=== PATIENT | female | born 1990 | race Caucasian/White ===

== ENCOUNTER → 2016-04-14 | Outpatient (REF) | payer BC | LOC: M SFHCWAGY 11:21 | PROVIDERS: ATTEND Nurse Practitioner Family | DX: Z12.4 Encounter for screening for malignant neoplasm of cervix (principal) ==

== ENCOUNTER → 2017-05-28 | Outpatient (REF) | payer BC | LOC: M SFHCWAGY 10:57 | DX: Z12.4 Encounter for screening for malignant neoplasm of cervix (principal) | CPT/HCPCS: G0123 ==

== ENCOUNTER → 2018-09-03 | Outpatient (REF) | payer BC | LOC: M SFHCLERA 13:39 | PROVIDERS: ATTEND Nurse Practitioner Family | DX: N92.6 Irregular menstruation, unspecified (principal) ==

== ENCOUNTER → 2018-10-01 | Outpatient (CLI) | payer BC ==
[2018-10-01 18:01] LABS: BASO % 0.5 % (0.0-1.0); HEMATOCRIT 39.4 % (36.0-47.0); HEMOGLOBIN 14.1 g/dl (12.0-15.5); LYMPH # 1.8 10^3/uL (1.5-6.5); LYMPH % 20.3 % (24.0-44.0); MEAN CORPUSCULAR HEMOGLOBIN 31.4 pg (27.0-33.0); MEAN CORPUSCULAR HGB CONC 35.8 g/dl (32.0-36.5); MEAN CORPUSCULAR VOLUME 87.8 fl (80.0-96.0); MONO # 0.5 10^3/uL (0.0-0.8); NEUTROPHILS # 6.4 10^3/uL (1.8-7.7); NEUTROPHILS % 72.4 % (36.0-66.0); PLATELET COUNT, AUTOMATED 226 10^3/uL (150-450); RED BLOOD COUNT 4.49 10^6/uL (4.00-5.40); WHITE BLOOD COUNT 8.9 10^3/uL (4.0-10.0)
[2018-10-01 20:02] LABS: CHLAMYDIA DNA AMPLIFICATION NEGATIVE (NEGATIVE); GC DNA AMPLIFICATION NEGATIVE (NEGATIVE)
[2018-10-02 23:00] LABS: HIV 1&2 SCREEN CENTAUR NEGATIVE (NEGATIVE); RUBELLA IgG QUALITATIVE IMMUNE (IMMUNE)
[2018-10-04 12:15] LABS: HEPATITIS C VIRUS ABY INDEX 0.1 INDEX (<0.8)
== END ==
LOC: M SMT 15:16
PROVIDERS: ATTEND Advanced Practice Midwife
DX: Z34.81 Encounter for supervision of other normal pregnancy, first trimester (principal); Z36.89 Encounter for other specified antenatal screening

== ENCOUNTER → 2018-12-03 | Outpatient (CLI) | payer BC ==
--- NOTE | 2018-12-03 17:04 | REP ---
OB ULTRASOUND: Real-time sonographic evaluation of the gravid uterus performed. There is a single living intrauterine gestation, estimated gestational age 21 weeks 5 days, EDC 04/10/2019. BPD 51 mm = 21 weeks 4 days HC 186 mm = 21 weeks 0 days AC 175 mm = 22 weeks 3 days FL 36 mm = 21 weeks 3 days HC/AC ratio 1.06, within normal range of 1.05 to 1.24. Estimated weight 458 grams, 53rd percentile. Cervix is closed and measures 3.8 cm in length. heart rate 144 beats per minute. SEEN/GROSSLY UNREMARKABLE Lateral ventricles yes Posterior fossa yes Upper lip yes Four-chamber heart yes LVOT yes RVOT yes Stomach yes Cord insertion yes Three vessel cord yes Kidneys yes Bladder yes Spine no position: Breech. Placenta: Posterior and grade 1 with no previa or abruption. Amniotic fluid: Within normal limits. Electronically Signed by Delfino Smith MD 12/06/2018 05:00 P
== END ==
LOC: M RAD 12:08
PROVIDERS: ATTEND Advanced Practice Midwife
DX: Z34.82 Encounter for supervision of other normal pregnancy, second trimester (principal); Z36.89 Encounter for other specified antenatal screening; Z3A.21 21 weeks gestation of pregnancy

== ENCOUNTER → 2019-01-11 | Outpatient (CLI) | payer BC ==
--- NOTE | 2019-01-12 02:40 | REP ---
Clinical: Anatomical evaluation. Comparison: 12/03/2018 . Findings: Examination demonstrates a single live intrauterine in cephalic presentation. motion is identified by technologist. Placenta is noted posterior and grade zero without evidence for placenta previa or abruption. Amniotic fluid volume is normal. Cervix measures 3.7 cm in length and appears closed. No evidence for nuchal cord. Gestational age by LMP 26 weeks 0 days with VLADIMIR 04/19/2019 . Gestational age by current measurements 28 weeks 0 days with VLADIMIR 04/05/2019 . FHR equals 140 beats per minute. Estimated weight 1247 grams ( 77 percentile based on age by first ultrasound at 27 weeks 2 days ). Anatomical assessment demonstrates normal structures including cranium, choroid plexus, cavum, cerebellum/posterior fossa, facial features, lungs, diaphragm, stomach, cord insertion/three-vessel cord, kidneys/bladder, spine, and extremities. Impression: Single live intrauterine in cephalic presentation demonstrating appropriate interval growth. In conjunction with prior examination anatomical assessment is complete and normal. No gross abnormalities are identified. Electronically Signed by Kana Adames MD 01/12/2019 02:32 A
== END ==
LOC: M RAD 10:29
PROVIDERS: ATTEND Obstetrics & Gynecology
DX: Z34.02 Encounter for supervision of normal first pregnancy, second trimester (principal); Z3A.27 27 weeks gestation of pregnancy

== ENCOUNTER → 2019-01-19 | Outpatient (CLI) | payer BC ==
[2019-01-19 17:27] LABS: HEMATOCRIT 39.7 % (36.0-47.0); HEMOGLOBIN 13.5 g/dl (12.0-15.5); MEAN CORPUSCULAR HEMOGLOBIN 31.2 pg (27.0-33.0); MEAN CORPUSCULAR VOLUME 91.7 fl (80.0-96.0); PLATELET COUNT, AUTOMATED 171 10^3/uL (150-450); RED BLOOD COUNT 4.33 10^6/uL (4.00-5.40); WHITE BLOOD COUNT 10.1 10^3/uL (4.0-10.0)
== END ==
LOC: M SMT 14:21
PROVIDERS: ATTEND Obstetrics & Gynecology
DX: Z34.02 Encounter for supervision of normal first pregnancy, second trimester (principal); Z3A.00 Weeks of gestation of pregnancy not specified

== ENCOUNTER → 2019-03-24 | Outpatient (CLI) | payer BC | LOC: M PLALAB 12:09 | PROVIDERS: ATTEND Advanced Practice Midwife | DX: Z34.03 Encounter for supervision of normal first pregnancy, third trimester (principal) ==

== ENCOUNTER 2019-03-30 11:59 | Inpatient (IN) | payer BC ==
[2019-03-30] VITALS (8 sets, daily range): BP systolic 132–177; BP diastolic 68–96
[~2019-03-30] VITALS: Ht 170.2 cm; Wt 111.7 kg
[2019-03-30] MEDS ORDERED: PRENTAB9 PO (12:31)
[2019-03-30] MEDS ORDERED: LR 1,000 ML IV SCH ×2 (12:35→18:15)
[2019-03-30] MEDS ORDERED: LACTATED RINGER'S 1000 ML IV STA (12:35)
[2019-03-30] MEDS ORDERED: ceFAZolin SOD 2 GM in IV 1 EA IV ONE (13:00)
[2019-03-30] MEDS ORDERED: BICITRA 30ML SOLN UDC PO ONE (13:00)
[2019-03-30] MEDS ORDERED: AZITHROMYCIN INJ 500 MG, VIAL MATE ADAPTER 1 EACH in D5W 250 ML IV ONE (13:00)
[2019-03-30 13:24] LABS: HEMATOCRIT 40.3 % (36.0-47.0); HEMOGLOBIN 14.1 g/dl (12.0-15.5); MEAN CORPUSCULAR HEMOGLOBIN 31.3 pg (27.0-33.0); MEAN CORPUSCULAR VOLUME 89.4 fl (80.0-96.0); PLATELET COUNT, AUTOMATED 149 10^3/uL (150-450); RED BLOOD COUNT 4.51 10^6/uL (4.00-5.40); WHITE BLOOD COUNT 8.5 10^3/uL (4.0-10.0)
[2019-03-30 13:46] LABS: CREATININE,RANDOM URINE 43.5 MG/DL; TOTAL PROTEIN,RANDOM URINE 88.7 MG/DL (0.0-12.0)
--- NOTE | 2019-03-30 14:32 | HPE ---
DATE OF ADMISSION: 03/30/2019 Alexsandra is a 28-year-old 1, para 0. She is at 37-2/7 weeks gestation with an EDC of 04/18/2019 based on 11-week ultrasound. She presents to labor and delivery today following a appointment in the office where she was found to have elevated blood pressures. She denies vaginal bleeding, leakage of fluid and regular contractions. She denies headache, visual disturbances, right upper quadrant pain and epigastric discomfort. She reports that the fetus has been active. Her care was initiated at [facility] in the first trimester. care has been uncomplicated until today's presentation. OBSTETRICAL HISTORY: Primigravida. OBSTETRICAL LABORATORIES: A+, antibody screen negative, rubella immune, VDRL nonreactive. Urine culture no growth. Hep B surface antigen negative, HIV negative. Hep C antibody nonreactive. Gonorrhea and chlamydia negative. She did decline genetic serum screening labs. Her gestational diabetic screening normal at 79. Her GBS is negative. PAST MEDICAL HISTORY: Noncontributory. SURGERIES: Appendectomy. FAMILY HISTORY: Hypertension. SOCIAL HISTORY: The patient is . She is a nonsmoker. She denies alcohol and drug use. She has no history of sexually transmitted infections. She denies history of abuse -- physical, sexual and emotional. ALLERGIES: No known drug allergies. CURRENT MEDICATIONS: vitamin, Zofran as needed. OBJECTIVE: Temperature 98.2, pulse 93, respiration 18, blood pressure upon arrival 168/70, followup blood pressure 177/89. heart rate is 130 with positive accelerations, no decelerations. Contractions irregular. Breech presentation confirmed with office ultrasound prior to her arriving to labor and delivery. ASSESSMENT: Intrauterine at 37-2/7 weeks. heart rate is category one. Severe range hypertension. PLAN: Per Dr. Weeks orders, to labor and delivery for admission and delivery via section today. I have ordered routine labs with the addition of a pre-eclamptic profile and a spot urine. The patient has been consented for surgery by Dr. Weeks in the office. The plan is for delivery later this afternoon. Risks, benefits and alternatives have been reviewed and all her questions have been answered.
[2019-03-30] MEDS ORDERED: ONDANSETRON 4MG/2ML VIAL (J2405) As Ordered ONE (15:52)
[2019-03-30] MEDS ORDERED: MORPHINE PRES-FREE INJ 10 MG/10 ML VIAL (J2274) As Ordered ONE (15:52)
[2019-03-30] MEDS ORDERED: fentaNYL 100 MCG/2 ML INJECTION (J3010) As Ordered ONE (15:52)
[2019-03-30] MEDS ORDERED: METOCLOPRAMIDE INJ 10MG/2ML VIAL (J2765) As Ordered ONE (15:53)
[2019-03-30] MEDS ORDERED: dexameTHASONE 4 MG/ML 1ML VIAL (J1100) As Ordered ONE (15:53)
[2019-03-30] MEDS ORDERED: OXYTOCIN INJ 10 UNITS/ML VIAL (J2590) As Ordered ONE (15:53)
[2019-03-30] MEDS ORDERED: OXYC1TAB23 PO (15:55)
[2019-03-30] MEDS ORDERED: NALOXONE INJ 0.4 MG/1 ML VIAL (J2310) IV PRN ×2 (16:49)
[2019-03-30] MEDS ORDERED: diphenhydrAMINE INJ 50MG/ML VIAL (J1200) IV PRN (16:49)
[2019-03-30] MEDS ORDERED: NALBUPHINE HCL 10 MG/ML AMP (J2300) IV PRN (16:49)
[2019-03-30] MEDS ORDERED: ONDANSETRON 4MG/2ML VIAL (J2405) IV PRN ×3 (16:49→18:15)
[2019-03-30] MEDS ORDERED: METOCLOPRAMIDE INJ 10MG/2ML VIAL (J2765) IV PRN ×2 (16:49→18:15)
[2019-03-30] MEDS ORDERED: KETOROLAC 60 MG/2 ML VIAL (J1885) As Ordered ONE (17:21)
[2019-03-30] MEDS ORDERED: ACETAMINOPHEN 1000MG 100ML IV BTL (OFIRMEV) (J0131 PER 10MG) As Ordered ONE (17:21)
[2019-03-30] MEDS ORDERED: OXYTOCIN DRIP 30 UNITS in IV 1 EA IV SCH (17:34)
[2019-03-30] MEDS ORDERED: PERCOCET 5MG/325MG TAB PO PRN ×2 (17:45→18:15)
[2019-03-30] MEDS ORDERED: RHOGAM 300 MCG (1500 IU) INJ (J2790) IM SCH (17:45)
[2019-03-30] MEDS ORDERED: ONDANSETRON 4 MG TAB (S0181) PO PRN (17:45)
[2019-03-30] MEDS ORDERED: MEASLES,MUMPS,RUBELLA VACCINE INJ (MMR-II) (90707) SC SCH (17:45)
[2019-03-30] MEDS ORDERED: DOCUSATE SODIUM 100 MG CAP PO PRN (17:45)
[2019-03-30] MEDS ORDERED: fentaNYL 100 MCG/2 ML INJECTION (J3010) IV PRN (18:15)
[2019-03-30] MEDS ORDERED: MEPERIDINE INJ 25 MG/ML VIAL (J2175) IV PRN (18:15)
[2019-03-30] MEDS ORDERED: OXYTOCIN 30 UNITS IN 0.9% NaCl 500ML IV BAG (J2590) As Ordered ONE (18:31)
[2019-03-30] MEDS: LR 1,000 ML IV SCH (23:00)
[2019-03-31] MEDS: KETOROLAC 30 MG/ML VIAL (J1885) IV SCH ×3 (00:05→12:50)
[2019-03-31] MEDS: LR 1,000 ML IV SCH (01:34)
[2019-03-31 02:30] VITALS: BP 130/69
[2019-03-31 06:00] VITALS: BP 134/69
[2019-03-31 06:51] LABS: HEMATOCRIT 32.2 % (36.0-47.0); HEMOGLOBIN 10.9 g/dl (12.0-15.5); MEAN CORPUSCULAR HEMOGLOBIN 31.1 pg (27.0-33.0); MEAN CORPUSCULAR HGB CONC 33.9 g/dl (32.0-36.5); MEAN CORPUSCULAR VOLUME 91.7 fl (80.0-96.0); PLATELET COUNT, AUTOMATED 123 10^3/uL (150-450); RED BLOOD COUNT 3.51 10^6/uL (4.00-5.40)
[2019-03-31 09:00] VITALS: BP 127/73
[2019-03-31] MEDS: PRENATAL VITAMINS CHEWABLE TABLET PO SCH (10:20)
--- NOTE | 2019-03-31 10:55 | RO ---
DATE OF PROCEDURE: 03/30/2019 PREDELIVERY DIAGNOSIS: 37-2/7 weeks gestation, breech presentation, preeclampsia. POSTOPERATIVE DIAGNOSIS: 37-2/7 weeks gestation, breech presentation, preeclampsia. PROCEDURE: Primary low transverse section. SURGEON: Corbin Weeks MD WATCHGUARD: Christine Eckert CNM ANESTHESIA: Spinal. ESTIMATED BLOOD LOSS: 500 mL. URINE OUTPUT: 50 mL. FINDINGS: 4140 gram (9 pound 2 ounce) male infant, score 8 and 9, brianna breech position. Normal uterus, fallopian tubes and ovaries. OPERATIVE SUMMARY: The patient was taken to the operating room where spinal anesthesia was induced. She was prepped and draped in sterile fashion in the supine position. A Restrepo catheter was in place. A Pfannenstiel skin incision was made with the scalpel and carried through to the fascia. The fascia was nicked and extended. The fascia was dissected off the rectus muscles. Peritoneal cavity was entered. A Mobius retractor was placed. A bladder flap was created. A curvilinear incision was made in the lower uterine segment until clear fluid was noted. This was extended manually. The was delivered from the brianna breech position and extended maneuvers without difficulty. The cord was doubly clamped and cut. The was handed off to the awaiting nurses. The placenta was expressed. The uterus was exteriorized and cleared of clots and debris. Uterine incision was closed with #0 Vicryl in a running locked fashion. A second imbricating layer of #0 Vicryl was placed. The Mobius retractor was removed. Good hemostasis was noted. The peritoneum was closed with #2-0 Vicryl in a running fashion. The fascia was closed with #0 Vicryl in a running fashion. The deep subcutaneous layer was irrigated and closed with #2-0 chromic. The skin was closed with #4-0 Monocryl subcuticular sutures. Sponge, instrument, and needle counts were correct. Christine Eckert CNM assisted in all aspects of the procedure from beginning to end. She helped create each layer of the incision. She helped expel the fetus and close all subsequent layers.
[2019-03-31] MEDS: PERCOCET 5MG/325MG TAB PO PRN (18:22)
[2019-03-31 20:00] VITALS: BP 125/83
[2019-03-31] MEDS: IBUPROFEN 800 MG TAB PO SCH (20:19)
[2019-04-01] VITALS: BP 126/74
[2019-04-01] MEDS: IBUPROFEN 800 MG TAB PO SCH ×3 (04:58→20:57)
[2019-04-01 05:00] VITALS: BP 127/74
[2019-04-01] MEDS: PRENATAL VITAMINS CHEWABLE TABLET PO SCH (07:13)
[2019-04-01] MEDS: PERCOCET 5MG/325MG TAB PO PRN (09:17)
[2019-04-01 14:00] VITALS: BP 138/79
--- NOTE | 2019-04-01 16:54 | IPNPDOC ---
Text Note Date of Service The patient was seen on 04/01/19. NOTE PO #2 Feels well. Adequate pain management. OOB to NICU. . Voiding QS, passing flatus VSS/afebrile, normotensive Breasts soft, nipples intact Fundus firm Dressing dry, intact Lochia rubra light without odor PO #2, Routine care. Consider discharge tomorrow. VS,Fishbone, I+O VS, Fishbone, I+O Vital Signs Date Time Temp Pulse Resp B/P (MAP) Pulse Ox O2 Delivery O2 Flow Rate FiO2 04/01/19 14:00 100 138/79 (98) 04/01/19 10:02 16 04/01/19 05:00 97.9 97 Room Air 97.9 I&O- Last 24 Hours up to 6 AM 04/01/19 05:59 Intake Total 100 ml Output Total 1175 ml Balance -[address] CNM Apr 01, 2019 16:54
[2019-04-01 18:00] VITALS: BP 137/73
[2019-04-02] MEDS: IBUPROFEN 800 MG TAB PO SCH (04:57)
[2019-04-02 06:00] VITALS: BP 148/85
[2019-04-02] MEDS ORDERED: IBUP80TA PO (06:55)
[2019-04-02] MEDS: PRENATAL VITAMINS CHEWABLE TABLET PO SCH (09:43)
== END 2019-04-02 09:40 | disposition home or self-care (01) | DRG 540 ==
LOC: M LDI 12:19 → M OBS 19:30
PROVIDERS: ADMIT Specialist; ATTEND Specialist
PROC: 10D00Z1 Extraction of Products of Conception, Low, Open Approach (ICD-10-PCS; principal; 2019-03-30 16:18)
DX: O32.1XX0 Maternal care for breech presentation, not applicable or unspecified (principal); Z37.0 Single live birth; Z3A.37 37 weeks gestation of pregnancy; O14.14 Severe pre-eclampsia complicating childbirth

== ENCOUNTER → 2019-07-05 | Outpatient (REF) | payer BC ==
[~2019-07-05] MED LIST: IBUP80TA PO; OXYC1TAB23 PO; PRENTAB9 PO
== END ==
LOC: M SFHCWAGY 17:55
PROVIDERS: ATTEND Nurse Practitioner Family
DX: Z12.4 Encounter for screening for malignant neoplasm of cervix (principal)

== ENCOUNTER → 2019-07-06 | Outpatient (REF) | payer BC | LOC: M SFHCLERA 15:59 | PROVIDERS: ATTEND Physician Assistant | DX: R10.30 Lower abdominal pain, unspecified (principal) ==

== ENCOUNTER → 2021-11-06 | Outpatient (REF) | payer BC | LOC: M SFHCWAGY 13:27 | PROVIDERS: ATTEND Nurse Practitioner Family | DX: Z12.4 Encounter for screening for malignant neoplasm of cervix (principal) | CPT/HCPCS: 87624; G0123 ==

== ENCOUNTER → 2022-01-15 | Outpatient (CLI) | payer BC ==
[2022-01-15 14:29] LABS: HEMATOCRIT 39.7 % (36.0-47.0); HEMOGLOBIN 13.7 g/dl (12.0-15.5); MEAN CORPUSCULAR HGB CONC 34.5 g/dl (32.0-36.5); MEAN CORPUSCULAR VOLUME 86.9 fl (80.0-96.0); PLATELET COUNT, AUTOMATED 209 10^3/uL (150-450); RED BLOOD COUNT 4.57 10^6/uL (4.00-5.40); WHITE BLOOD COUNT 7.3 10^3/uL (4.0-10.0)
[2022-01-15 15:44] LABS: ALT/SGPT 15 U/L (7.0-40); BILIRUBIN,TOTAL 0.6 MG/DL (0.3-1.2); CREATININE FOR GFR 0.41 MG/DL (0.55-1.30); GLOMERULAR FILTRATION RATE > 60.0 (>60); HIV 1&2 SCREEN CENTAUR NEGATIVE (NEGATIVE); LDH LACTATE DEHYDROGENASE 198 U/L (120-246); URIC ACID 3.3 MG/DL (3.1-7.8)
[2022-01-15 15:52] LABS: GC DNA AMPLIFICATION NEGATIVE (NEGATIVE)
[2022-01-15 16:05] LABS: CREATININE,RANDOM URINE 119.2 MG/DL; TOTAL PROTEIN,RANDOM URINE 22.7 MG/DL (0.0-14.0)
[2022-01-15 17:07] LABS: HEPATITIS C VIRUS ABY INDEX 0.1 INDEX (<0.8)
== END ==
LOC: M PLALAB 09:43
PROVIDERS: ATTEND Obstetrics & Gynecology
DX: O10.911 Unspecified pre-existing hypertension complicating pregnancy, first trimester (principal); Z3A.00 Weeks of gestation of pregnancy not specified

== ENCOUNTER → 2022-03-06 | Outpatient (CLI) | payer BC | LOC: M WHC 07:58 | PROVIDERS: ATTEND Obstetrics & Gynecology | DX: Z34.92 Encounter for supervision of normal pregnancy, unspecified, second trimester (principal); Z3A.19 19 weeks gestation of pregnancy ==

== ENCOUNTER → 2022-04-04 | Outpatient (CLI) | payer BC | LOC: M WHC 07:03 | PROVIDERS: ATTEND Specialist | DX: Z34.82 Encounter for supervision of other normal pregnancy, second trimester (principal); Z3A.23 23 weeks gestation of pregnancy ==

== ENCOUNTER → 2022-04-18 | Outpatient (CLI) | payer BC ==
[2022-04-18 14:17] LABS: HEMATOCRIT 35.8 % (36.0-47.0); HEMOGLOBIN 12.4 g/dl (12.0-15.5); MEAN CORPUSCULAR HEMOGLOBIN 30.7 pg (27.0-33.0); MEAN CORPUSCULAR HGB CONC 34.6 g/dl (32.0-36.5); MEAN CORPUSCULAR VOLUME 88.6 fl (80.0-96.0); PLATELET COUNT, AUTOMATED 202 10^3/uL (150-450); RED BLOOD COUNT 4.04 10^6/uL (4.00-5.40); WHITE BLOOD COUNT 12.5 10^3/uL (4.0-10.0)
[2022-04-18 15:36] LABS: GC DNA AMPLIFICATION NEGATIVE (NEGATIVE)
== END ==
LOC: M PLALAB 11:03
PROVIDERS: ATTEND Specialist
DX: Z34.82 Encounter for supervision of other normal pregnancy, second trimester (principal)

== ENCOUNTER → 2022-05-12 | Outpatient (CLI) | payer BC | LOC: M WHC 11:54 | PROVIDERS: ATTEND Advanced Practice Midwife | DX: Z34.82 Encounter for supervision of other normal pregnancy, second trimester (principal); Z3A.28 28 weeks gestation of pregnancy ==

== ENCOUNTER → 2022-06-09 | Outpatient (CLI) | payer BC | LOC: M WHC 07:26 | PROVIDERS: ATTEND Obstetrics & Gynecology | DX: O10.913 Unspecified pre-existing hypertension complicating pregnancy, third trimester (principal); Z3A.32 32 weeks gestation of pregnancy ==

== ENCOUNTER → 2022-06-13 | Outpatient (CLI) | payer BC | LOC: M WHC 11:15 | PROVIDERS: ATTEND Obstetrics & Gynecology | DX: O10.913 Unspecified pre-existing hypertension complicating pregnancy, third trimester (principal); Z3A.00 Weeks of gestation of pregnancy not specified ==

== ENCOUNTER → 2022-07-02 | Outpatient (CLI) | payer BC ==
[~2022-07-02] MED LIST changes: +BAYE81TA10 PO; +LABE200T5 PO
[2022-07-02 18:11] LABS: HEMOGLOBIN 12.9 g/dl (12.0-15.5); MEAN CORPUSCULAR HEMOGLOBIN 30.6 pg (27.0-33.0); MEAN CORPUSCULAR HGB CONC 34.9 g/dl (32.0-36.5); MEAN CORPUSCULAR VOLUME 87.9 fl (80.0-96.0); PLATELET COUNT, AUTOMATED 194 10^3/uL (150-450); RED BLOOD COUNT 4.21 10^6/uL (4.00-5.40); WHITE BLOOD COUNT 9.6 10^3/uL (4.0-10.0)
[2022-07-02 18:35] LABS: TOTAL PROTEIN,RANDOM URINE 34.3 MG/DL (0.0-14.0)
[2022-07-02 18:38] LABS: CREATININE,RANDOM URINE 109.9 MG/DL
[2022-07-02 18:41] LABS: URIC ACID 4.8 MG/DL (3.1-7.8)
[2022-07-02 18:43] LABS: LDH LACTATE DEHYDROGENASE 188 U/L (120-246)
[2022-07-02 18:45] LABS: ALT/SGPT < 9 U/L (7.0-40); AST/SGOT 21 U/L (<34); BILIRUBIN,TOTAL 0.8 MG/DL (0.3-1.2); CREATININE FOR GFR 0.52 MG/DL (0.55-1.30); GLOMERULAR FILTRATION RATE > 60.0 (>60)
== END ==
LOC: M PLALAB 14:42
PROVIDERS: ATTEND Specialist
DX: O10.913 Unspecified pre-existing hypertension complicating pregnancy, third trimester (principal); Z3A.00 Weeks of gestation of pregnancy not specified

== ENCOUNTER 2022-07-07 14:29 | Inpatient (IN) | payer BC ==
[2022-07-07] VITALS (7 sets, daily range): BP systolic 142–164; BP diastolic 86–99
[~2022-07-07] VITALS: Ht 167.6 cm; Wt 114.7 kg
[2022-07-07] MEDS ORDERED: HOME MED LIST COMPLETE! XX SCH (14:55)
[2022-07-07 15:34] LABS: HEMATOCRIT 35.9 % (36.0-47.0); HEMOGLOBIN 12.8 g/dl (12.0-15.5); MEAN CORPUSCULAR HEMOGLOBIN 30.8 pg (27.0-33.0); MEAN CORPUSCULAR HGB CONC 35.7 g/dl (32.0-36.5); MEAN CORPUSCULAR VOLUME 86.5 fl (80.0-96.0); PLATELET COUNT, AUTOMATED 176 10^3/uL (150-450); RED BLOOD COUNT 4.15 10^6/uL (4.00-5.40); WHITE BLOOD COUNT 9.3 10^3/uL (4.0-10.0)
[2022-07-07] MEDS ORDERED: LACTATED RINGER'S 1000 ML IV STA (15:59)
[2022-07-07] MEDS ORDERED: CLINDAMYCIN 900 MG in IV 1 EA IV ONE (16:00)
[2022-07-07] MEDS ORDERED: TRANEXAMIC ACID INJection 1,000 MG in NS 100 ML IV PRN (16:00)
[2022-07-07] MEDS ORDERED: OXYTOCIN INJ 10UNITS/ML 1ML VIAL IV PRN (16:00)
[2022-07-07] MEDS ORDERED: OXYTOCIN DRIP 30 UNITS in IV 1 EA IV PRN ×6 (16:00)
[2022-07-07] MEDS ORDERED: BICITRA 30ML SOLN UDC PO ONE (16:00)
[2022-07-07] MEDS ORDERED: GENTAMICIN 400 MG in D5W 100 ML IV ONE (17:00)
[2022-07-07] MEDS: LR 1,000 ML IV SCH ×2 (18:19→20:30)
[2022-07-07] MEDS ORDERED: OXYTOCIN INJ 10UNITS/ML 1ML VIAL As Ordered ONE (20:05)
[2022-07-07] MEDS ORDERED: ONDANSETRON 4MG 2ML VIAL As Ordered ONE (20:05)
[2022-07-07] MEDS ORDERED: fentaNYL 100 MCG/2 ML INJECTION As Ordered ONE (20:06)
[2022-07-07] MEDS ORDERED: MORPHINE PRES-FREE INJ 10 MG/10 ML VIAL As Ordered ONE (20:08)
[2022-07-07] MEDS ORDERED: PHENYLephrine 500MCG 5ML (100MCG/ML) SYRINGE As Ordered ONE (22:13)
[2022-07-07] MEDS ORDERED: MOM 30ML SUSPENSION UDC PO PRN (22:20)
[2022-07-07] MEDS ORDERED: SIMETHICONE 80MG CHEW TAB PO PRN (22:20)
[2022-07-07] MEDS ORDERED: OXYTOCIN DRIP 30 UNITS in IV 1 EA IV SCH (22:20)
[2022-07-07] MEDS ORDERED: RHOGAM 300MCG (1500IU) INJ IM SCH (22:20)
[2022-07-07] MEDS ORDERED: PERCOCET 5MG/325MG TAB PO PRN ×2 (22:20)
[2022-07-07] MEDS ORDERED: ONDANSETRON 4MG 2ML VIAL IV PRN ×2 (22:20→22:25)
[2022-07-07] MEDS ORDERED: MEPERIDINE 25 MG/ML 1ML VIAL IV PRN (22:25)
[2022-07-07] MEDS ORDERED: **NOTE PATIENT COMMENT** MISC XX SCH (22:25)
[2022-07-07] MEDS ORDERED: METOCLOPRAMIDE INJ 10MG/2ML VIAL IV PRN (22:25)
[2022-07-07] MEDS: SLF 3 ML SYR IV SCH (22:25)
[2022-07-07] MEDS ORDERED: NALOXONE INJ 0.4MG/1ML VIAL IV PRN ×2 (22:25)
[2022-07-07] MEDS ORDERED: HYDROMORPHONE HCL 0.5 MG/ 0.5 ML SYRINGE IV PRN (22:25)
[2022-07-07] MEDS ORDERED: oxyCODONE 5MG TAB PO PRN (22:25)
[2022-07-07] MEDS ORDERED: fentaNYL 100 MCG/2 ML INJECTION IV PRN (22:25)
[2022-07-07] MEDS ORDERED: diphenhydrAMINE 50MG/ML VIAL IV PRN (22:25)
[2022-07-07] MEDS ORDERED: OXYTOCIN 30UNITS IN 0.9% NaCl 500ML IV BAG As Ordered ONE (22:58)
[2022-07-08] VITALS (11 sets, daily range): BP systolic 134–165; BP diastolic 66–87
[2022-07-08] MEDS: KETOROLAC 30 MG/ML 1ML VIAL IV SCH ×3 (04:03→16:16)
[2022-07-08] MEDS: LR 1,000 ML IV SCH ×6 (04:30→22:20)
[2022-07-08] MEDS: SLF 3 ML SYR IV SCH ×2 (06:25→14:25)
[2022-07-08 07:51] LABS: HEMATOCRIT 36.2 % (36.0-47.0); HEMOGLOBIN 12.7 g/dl (12.0-15.5); MEAN CORPUSCULAR HEMOGLOBIN 30.6 pg (27.0-33.0); MEAN CORPUSCULAR HGB CONC 35.1 g/dl (32.0-36.5); MEAN CORPUSCULAR VOLUME 87.2 fl (80.0-96.0); PLATELET COUNT, AUTOMATED 170 10^3/uL (150-450); RED BLOOD COUNT 4.15 10^6/uL (4.00-5.40); WHITE BLOOD COUNT 12.6 10^3/uL (4.0-10.0)
[2022-07-08] MEDS: FERROUS SULFATE 325MG TAB PO SCH (10:10)
[2022-07-08] MEDS: PRENATAL VITAMINS CHEWABLE TABLET PO SCH (10:10)
[2022-07-08] MEDS: DOCUSATE SODIUM 100MG CAPSULE PO SCH ×2 (10:10→21:18)
[2022-07-08 14:15] LABS: ALBUMIN 2.7 G/DL (3.2-5.2); ALKALINE PHOSPHATASE 96 U/L (46-116); ALT/SGPT 17 U/L (7.0-40); AST/SGOT 29 U/L (<34); BILIRUBIN,TOTAL 0.8 MG/DL (0.3-1.2); BLOOD UREA NITROGEN 10 MG/DL (9-23); CARBON DIOXIDE LEVEL 24 MMOL/L (20-31); CHLORIDE LEVEL 105 MMOL/L (98-107); GLOMERULAR FILTRATION RATE > 60.0 (>60); GLUCOSE, FASTING 101 MG/DL (60-100); POTASSIUM SERUM 3.6 MMOL/L (3.5-5.1); SODIUM LEVEL 135 MMOL/L (136-145); TOTAL PROTEIN 5.6 G/DL (5.7-8.2)
[2022-07-09] VITALS (7 sets, daily range): BP systolic 124–164; BP diastolic 63–85
[2022-07-09] MEDS ORDERED: IBUPROFEN 800 MG TAB PO SCH (00:15)
[2022-07-09] MEDS: LR 1,000 ML IV SCH (06:19)
[2022-07-09 06:24] LABS: HEMATOCRIT 31.7 % (36.0-47.0); MEAN CORPUSCULAR HEMOGLOBIN 30.8 pg (27.0-33.0); MEAN CORPUSCULAR HGB CONC 34.7 g/dl (32.0-36.5); MEAN CORPUSCULAR VOLUME 88.8 fl (80.0-96.0); PLATELET COUNT, AUTOMATED 117 10^3/uL (150-450); RED BLOOD COUNT 3.57 10^6/uL (4.00-5.40); WHITE BLOOD COUNT 7.3 10^3/uL (4.0-10.0)
[2022-07-09 07:01] LABS: ALBUMIN 2.5 G/DL (3.2-5.2); ALKALINE PHOSPHATASE 82 U/L (46-116); ALT/SGPT 17 U/L (7.0-40); AST/SGOT 31 U/L (<34); BILIRUBIN,TOTAL 0.5 MG/DL (0.3-1.2); BLOOD UREA NITROGEN 11 MG/DL (9-23); CALCIUM LEVEL 8.1 MG/DL (8.5-10.1); CARBON DIOXIDE LEVEL 26 MMOL/L (20-31); CHLORIDE LEVEL 106 MMOL/L (98-107); CREATININE FOR GFR 0.51 MG/DL (0.55-1.30); GLOMERULAR FILTRATION RATE > 60.0 (>60); GLUCOSE, FASTING 86 MG/DL (60-100); SODIUM LEVEL 138 MMOL/L (136-145); TOTAL PROTEIN 5.2 G/DL (5.7-8.2)
[2022-07-09] MEDS: PRENATAL VITAMINS CHEWABLE TABLET PO SCH (08:29)
[2022-07-09] MEDS: DOCUSATE SODIUM 100MG CAPSULE PO SCH ×2 (08:29→20:30)
[2022-07-09] MEDS: FERROUS SULFATE 325MG TAB PO SCH (08:29)
[2022-07-09] MEDS ORDERED: MEASLES,MUMPS,RUBELLA VACCINE INJ (MMR-II) SC.IMMUN ONE (09:00)
[2022-07-09] MEDS ORDERED: CYSTO-CONRAY II 17.2% 250ML VIAL As Ordered ONE (10:04)
[2022-07-09] MEDS: IBUPROFEN 800 MG TAB PO SCH ×2 (10:46→17:21)
[2022-07-09] MEDS ORDERED: NIFEdipine 10 MG CAP PO STA (14:28)
[2022-07-09] MEDS ORDERED: IBUP80TA PO (15:38)
[2022-07-09] MEDS ORDERED: PERCOCET PO (15:38)
[2022-07-09] MEDS: LABETALOL 200 MG TAB PO SCH (17:21)
[2022-07-10] MEDS: IBUPROFEN 800 MG TAB PO SCH (01:48)
[2022-07-10 02:00] VITALS: BP 146/70
[2022-07-10 04:50] VITALS: BP 135/68
[2022-07-10] MEDS: LABETALOL 200 MG TAB PO SCH (04:50)
[2022-07-10 06:00] VITALS: BP 149/74
[2022-07-10] MEDS: PRENATAL VITAMINS CHEWABLE TABLET PO SCH (08:37)
[2022-07-10] MEDS: DOCUSATE SODIUM 100MG CAPSULE PO SCH (08:37)
[2022-07-10] MEDS: FERROUS SULFATE 325MG TAB PO SCH (08:37)
== END 2022-07-10 09:10 | disposition home or self-care (01) | DRG 540 ==
LOC: M LDI 14:29 → M OBS 07-08 00:15
PROVIDERS: ADMIT Obstetrics & Gynecology; ATTEND Obstetrics & Gynecology
PROC: 10D00Z1 Extraction of Products of Conception, Low, Open Approach (ICD-10-PCS; principal; 2022-07-07 21:00)
DX: O34.211 Maternal care for low transverse scar from previous cesarean delivery (principal); R31.0 Gross hematuria; Z37.0 Single live birth; Z3A.36 36 weeks gestation of pregnancy; O09.523 Supervision of elderly multigravida, third trimester; O14.94 Unspecified pre-eclampsia, complicating childbirth; Z79.899 Other long term (current) drug therapy; Z88.8 Allergy status to other drugs, medicaments and biological substances

== ENCOUNTER → 2024-04-12 | Outpatient (REF) | payer BC ==
[~2024-04-12] MED LIST changes: +PERCOCET PO
[2024-04-14 13:22] LABS: HPV APTIMA Not Detected (Not Detected)
== END ==
LOC: M SFHCWAGY 13:19
PROVIDERS: ATTEND Nurse Practitioner Family
DX: Z11.51 Encounter for screening for human papillomavirus (HPV) (principal); Z12.4 Encounter for screening for malignant neoplasm of cervix
CPT/HCPCS: 87624; G0123